=== PATIENT | male | born 1995 | race Caucasian/White ===

== ENCOUNTER 2016-05-18 17:20 | Emergency (ER) | payer SELFPAY ==
--- NOTE | ~2016-05-18 | ER ---
PATIENT'S NAME: FAB [facility]ON[facility] AGE: 21 Y [address] ROOM: [place] [id number] LOCATION: [facility] ADMIT DATE: 05/18/2016 ER/Outpatient Report DISCHARGE DATE: 05/18/2016 FAMILY PHYSICIAN: Lul Regan MD ATTENDING PHYSICIAN: Chaim Travis CHIEF COMPLAINT: Left hand pain. TIME OF THE PATIENT ARRIVAL: 1720 hours. TIME OF THE PATIENT EVALUATION: 1730 hours. HISTORY OF PRESENT ILLNESS: This is a 21-year-old male who presents to the ER states he punched a wall 10 days ago. The patient states that it did hurt afterwards, but he thought it would just heal itself. He does not particularly have any significant pain to the hand right now, but he states his mom made him come in. He has no numbness or tingling. He noticed an obvious slight swelling or deformity to the lateral aspect of his hand. He denies any other problems at this time. ALLERGIES: NO KNOWN ALLERGIES. MEDICATIONS: None. PAST MEDICAL HISTORY: History of seizures and ADHD. PAST SURGERIES: None. SOCIAL HISTORY: He does smoke marijuana and drink alcohol. REVIEW OF SYSTEMS: CONSTITUTIONAL: Denies any change in weight or fatigue. MUSCULOSKELETAL: Complaining of left hand deformity and slight pain. SKIN: No lesions or rashes. PHYSICAL EXAMINATION: VITAL SIGNS: Height 5 feet, 9 inches stated, weight 68 kg taken, blood PATIENT'S NAME: FAB QUINONES [facility] AGE: 21 Y [address] ROOM: [place] [id number] LOCATION: [facility] ADMIT DATE: 05/18/2016 ER/Outpatient Report DISCHARGE DATE: 05/18/2016 FAMILY PHYSICIAN: Lul Regan MD ATTENDING PHYSICIAN: Chaim Travis pressure is 117/78, pulse 97, respirations 16, temperature 97 degrees tympanically, and saturations 97% on room air. Lala Coma Score is 15. GENERAL: Alert, calm, well-developed male, in no acute distress. EXTREMITIES: No clubbing or cyanosis. He is able to open and close his left hand with no difficulties. He does have some discomfort with palpation over the 5th metacarpal. He has good sensation to the pinky and good pulse. LABS AND X-RAYS: Labs none were done. X-rays of the left hand show a 5th metacarpal fracture. IMPRESSION: Left 5th metacarpal fracture. ASSESSMENT AND PLAN: I did place him in an ulnar gutter splint for support. He needs to ice and elevate the hand. He may take Tylenol or ibuprofen as needed for pain control. He should follow up with his Orthopedic of choice for followup care. The patient understands and agrees with care. ADOLFO GOODEN PA-C FOR DO DARVIN TIM/[email or web address] /[id number] d: t: 05/22/162022, OUTPATIENT REPORT
== END 2016-05-18 18:01 | disposition disaster alternative care site (69) ==
LOC: GMED 17:20
PROC: 2W3DX1Z Immobilization of Left Lower Arm using Splint (ICD-10-PCS; principal; 2016-05-18)
DX: S62.307A Unspecified fracture of fifth metacarpal bone, left hand, initial encounter for closed fracture (principal); F90.9 Attention-deficit hyperactivity disorder, unspecified type; W22.01XA Walked into wall, initial encounter